=== PATIENT | male | born 1960 ===

== ENCOUNTER → 2023-10-04 09:43 | Outpatient (POV) | payer MEDICARE, SELFPAY ==
[2023-10-04 10:16] VITALS: BP 161/89; PULSE 88; RESP 18; O2SAT 97; BMI 26.9
--- NOTE | 2023-10-04 12:26 | A.OFFVIS_ITS ---
HPI Data of Consult Patient: new to practice Consult date: 10/04/23 Requesting Physician: Gabrielle Quiñones APRN Consult Narrative Reason for consult: Low back pain, bilateral leg pain History of present illness: Mr. Hogue is a 63 year old male who presents today as a new patient. He is a referral from [facility]. Today he rates his pain an 8 out of 10. Patient states his pain is all in his low back and radiates into his bilateral lower extremities. Patient states this has been going on for 8 years plus and denies any specific trauma or injury that initially started at that time. He does state that he had an accident approximately 30 years ago when he was parachuting and believes a lot of his problems stem from it. Patient does state that this is a constant sharp achy sensation that radiates down his legs with numbness and tingling. He states he does have complete numbness around his upper left thigh and knee. Patient does state that he had a prior laminectomy in 2003 that did significantly improve his symptoms however approximately 7 to 8 years ago is when he slipped in a barn resulting in a fall where he landed on his back and this caused significant flareup. Patient states he has had issues ever since. Patient states over the years he has tried Tylenol and ibuprofen along with heat and ice and topicals with minimal relief. Patient states he had physical therapy however this made his symptoms worse. Patient states he has had multiple injections at previous pain clinics in the past with no additional improvement. Patient denies any recent imaging. He states he has recently gone to the [facility] due to his pain and that he was given Lyrica and oxycodone. Patient states this did help. He does also state he has a history of cervical neck issues. Patient does state that he is not interested in any future pain pump or spinal cord stimulator trials. His Danny has been reviewed and is appropriate. CC: Gabrielle Quiñones APRN [facility] Disclaimer: The information contained in this section may have been updated after the patient was seen, as this information can be updated by other users. Medical History (Updated 10/04/23 @ 13:08 by Gabrielle Quiñones APRN) Afib Cataracts, bilateral COPD (chronic obstructive pulmonary disease) Femoral artery stenosis Lumbar spinal stenosis Meningioma Migraines Surgical History (Updated 10/04/23 @ 13:08 by Gabrielle Quiñones APRN) H/O elbow surgery H/O shoulder surgery History of appendectomy History of lumbar laminectomy Hx of cholecystectomy Family History (Updated 10/04/23 @ 10:12 by Prisca Amezquita, DRAKE) Other Unknown family medical history Social History (Updated 10/04/23 @ 10:16 by Prisca Amezquita RN) Smoking Status: Current every day smoker alcohol intake: never current occupational status: other Travel in the last 8 weeks: None Review of Systems Review of Systems Review of systems:: pertinent systems reviewed and negative unless documented below Review of systems (narrative): Review of Systems: General: No recent weight changes, no fever, no sleep disturbances Respiratory: No cough, no shortness of air, no recurring pulmonary infections Cardiovascular/peripheral vascular: No chest pain, no palpitations, no edema, no shortness of breath Gastrointestinal: No new onset incontinence, normal bowel movements reported Genitourinary: No new onset incontinence Musculoskeletal: Low back pain, bilateral leg pain Psychiatric: [Normal mood/affect] Neurological: [Denies weakness in extremities], [denies balance issues] Meds Home Medications and Allergies Home Medications Medication Instructions Recorded Confirmed Type aspirin 81 mg chewable tablet 81 mg PO DAILY 10/04/23 10/04/23 History doxycycline hyclate 100 mg capsule 100 mg PO DAILY . 10/04/23 10/04/23 History fluticasone 250 mcg-salmeterol 50 1 inh inhalation DIRECTED 10/04/23 10/04/23 History mcg/dose blistr powdr for Breathing Problems inhalation metoprolol succinate 25 mg 25 mg PO DAILY 10/04/23 10/04/23 History tablet,extended release 24 hr oxycodone-acetaminophen 10 mg-325 1 tab PO BID Pain 10/04/23 10/04/23 History mg tablet pregabalin 300 mg capsule 300 mg PO DIRECTED Pain 10/04/23 10/04/23 History sumatriptan succinate 100 mg 100 mg PO Q2H PRN MIGRAINES 10/04/23 10/04/23 History tablet (Imitrex) New Prescriptions to Start Prescriptions: Allergies Allergy/AdvReac Type Severity Reaction Status Date / Time codeine Allergy Verified 10/04/23 10:31 Penicillins Allergy Verified 10/04/23 10:31 Sulfa (Sulfonamide Allergy Verified 10/04/23 10:31 Antibiotics) Corticosteroids AdvReac Verified 10/04/23 10:31 (Glucocorticoids) Objective Vital signs: Pulse Resp BP Pulse Ox O2 Del Method 88 18 161/89 H 97 Room Air 10/04/23 10:16 10/04/23 10:16 10/04/23 10:16 10/04/23 10:16 10/04/23 10:16 Narrative: Physical Exam: General: Alert and oriented x3, no acute distress, pleasant and cooperative Lungs: Respirations even and unlabored, symmetrical chest expansion Eyes: PERRL Musculoskeletal: Flexion and extension of lumbar [spine] somewhat guarded secondary to pain, [antalgic gait noted] Neurological: Speech clear, no gross sensory deficit Assessment and Plan *Assessment and plan (1) Degenerative disc disease, lumbar: Status: Acute Category: Medical Code(s): M51.36 - Other intervertebral disc degeneration, lumbar region (2) Lumbar radiculopathy: Status: Acute Category: Medical Code(s): M54.16 - Radiculopathy, lumbar region (3) Status post laminectomy: Status: Acute Category: Surgical Code(s): Z98.890 - Other specified postprocedural states Plan Patient is experiencing chronic pain in his low back and legs with limited range of motion. I have discussed with the patient that he may benefit from injection therapy in the future such as epidurals however I will order updated imaging first. I will place an order for x-ray as well as MRI without contrast of his lumbar spine. I have counseled the patient that we are an interventional pain clinic and that we do more injection therapy and do not prescribe any scheduled medications to new patients. Patient denied being let go from his previous pain clinic however we do have documentation that came over with his referral stating that he was on long-term controlled pain medications of morphine, oxycodone and Lyrica and was dismissed due to a positive UDS for THC. Patient will return to clinic in 1 month following imaging for reevaluation of symptoms and plan of care. Patient has been instructed to contact the clinic with any concerns before the next appointment. Dr. Farrell has reviewed this note and agrees with this plan of care. This note was dictated using voice recognition software and make contain errors or omissions.
== END ==
PROVIDERS: Visit Provider Nurse Practitioner Family
DX: M51.16 Intervertebral disc disorders with radiculopathy, lumbar region (principal); M96.1 Postlaminectomy syndrome, not elsewhere classified
CPT/HCPCS: 99202; G0463